=== PATIENT | male | born 1950 | race Caucasian/White ===

== ENCOUNTER 2016-06-07 14:15 | Emergency (ER) | payer OTHER ==
[~2016-06-07] VITALS: Ht 160 cm; Wt 70.0 kg
[2016-06-07 16:45] VITALS: BP 122/68
== END 2016-06-07 17:27 | disposition home or self-care (01) ==
LOC: ER 14:16
DX: F10.129 Alcohol abuse with intoxication, unspecified (principal); Y90.9 Presence of alcohol in blood, level not specified
CPT/HCPCS: 99283

== ENCOUNTER 2019-08-27 16:46 | Inpatient (IN) | payer MEDICAID, OTHER ==
[~2019-08-27] VITALS: Ht 157.5 cm; Wt 45.4 kg
[2019-08-27] MEDS ORDERED: VANCOMYCIN 1 G PREMIX 200 ML IV ONE (18:45)
[2019-08-27] MEDS ORDERED: PIPERACILLIN/TAZ 3.375G PREMIX 50 ML IV ONE (18:45)
[2019-08-27 19:21] LABS: CHLORIDE 92 mEq/L (98-107)
[2019-08-27 19:23] LABS: INR 1.1; PROTHROMBIN TIME 11.2 sec (9.6-11.0)
[2019-08-27 19:25] LABS: ETHANOL BLOOD < 10 mg/dL
[2019-08-27 19:29] LABS: CREATINE KINASE 161 IU/L (39-308)
[2019-08-27 19:33] LABS: BASOPHILS % 0.9 % (0.0-2.0); EOSINOPHILS % 1.2 % (0.0-5.0); HEMATOCRIT. 27.4 % (42.0-52.0); HEMOGLOBIN. 9.9 g/dL (14.0-18.0); LYMPHOCYTES % 7.1 % (20.0-50.0); MEAN CORPUSCULAR HEMOGLOBIN 34.3 pg (28.0-32.0); MEAN CORPUSCULAR VOLUME 95.3 fL (80.0-94.0); MEAN PLATELET VOLUME 8.2 fl (7.4-10.4); MONOCYTES % 11.4 % (2.0-8.0); NEUTROPHILS % 79.4 % (40.0-76.0); PLATELET 122 x1000/uL (130-400); RED BLOOD CELL COUNT 2.87 mill/uL (4.7-6.1); RED CELL DISTRIBUTION WIDTH 15.2 % (11.6-14.6)
[2019-08-27] MEDS ORDERED: SODIUM CHLORIDE 0.9% 1000ML BAG (SEPSIS BOLUS) IV ONE (20:00)
[2019-08-27 22:03] LABS: CREATINE KINASE 153 IU/L (39-308)
[2019-08-27] MEDS ORDERED: ACETAMINOPHEN 325MG TABLET PO PRN (23:00)
[2019-08-27] MEDS ORDERED: LORAZEPAM 2MG/ML CPJ IV PRN (23:00)
[2019-08-27] MEDS: SODIUM CHLORIDE 0.45% 1,000 ML IV SCH (23:20)
[2019-08-28 04:57] LABS: HEMOGLOBIN. 9.3 g/dL (14.0-18.0); MEAN CORPUSCULAR HEMOGLOBIN 34.1 pg (28.0-32.0); MEAN PLATELET VOLUME 7.7 fl (7.4-10.4); PLATELET 90 x1000/uL (130-400); RED BLOOD CELL COUNT 2.74 mill/uL (4.7-6.1); RED CELL DISTRIBUTION WIDTH 15.3 % (11.6-14.6)
[2019-08-28 05:05] LABS: CHLORIDE 93 mEq/L (98-107)
[2019-08-28 06:38] LABS: CLARITY URINE CLEAR (CLEAR); COLOR URINE ORANGE (YELLOW); KETONES URINE 1+ (NEGATIVE); LEUKOCYTE ESTERASE URINE 1+ (NEGATIVE); NITRITE URINE POSITIVE (NEGATIVE); OCCULT BLOOD URINE 2+ (NEGATIVE); PH URINE 5.5 (4.5-8.0); PROTEIN URINE TRACE (NEGATIVE); SPECIFIC GRAVITY URINE 1.023 (1.005-1.030)
[2019-08-28 07:04] LABS: *AMPHETAMINES SCREEN URINE NEGATIVE (NEGATIVE); *BARBITURATES SCREEN URINE NEGATIVE (NEGATIVE); *BENZODIAZEPINES SCREEN URINE NEGATIVE (NEGATIVE); *COCAINE SCREEN URINE NEGATIVE (NEGATIVE); METHADONE URINE SCREEN NEGATIVE (NEGATIVE); OPIATES URINE SCREEN NEGATIVE (NEGATIVE)
[2019-08-28 07:05] LABS: CANNABINOID URINE SCREEN NEGATIVE (NEGATIVE); PHENCYCLIDINE URINE SCREEN NEGATIVE (NEGATIVE)
[2019-08-28 10:30] VITALS: BP 110/68
[2019-08-28 10:53] LABS: PLATELET ESTIMATE DECREASED
[2019-08-28] MEDS: THIAMINE HCL 100MG TABLET PO SCH (11:03)
[2019-08-28 12:00] VITALS: BP 107/66
[2019-08-28] MEDS: AZITHROMYCIN 500 MG in DEXT 5% WATER 250 ML IV SCH (13:17)
[2019-08-28] MEDS: CEFTRIAXONE 1 G PREMIX 50 ML IV SCH (13:17)
[2019-08-28] MEDS: CHLORDIAZEPOXIDE 25MG CAPSULE PO SCH ×2 (13:18→21:29)
[2019-08-28] MEDS: SODIUM CHLORIDE 0.45% 1,000 ML IV SCH (13:18)
[2019-08-28 16:00] VITALS: BP 107/65
[2019-08-28 20:00] VITALS: BP 90/52
[2019-08-29] VITALS (7 sets, daily range): BP systolic 83–106; BP diastolic 50–60
[2019-08-29] MEDS: SODIUM CHLORIDE 0.45% 1,000 ML IV SCH ×2 (01:49→14:33)
[2019-08-29] MEDS: CHLORDIAZEPOXIDE 25MG CAPSULE PO SCH ×3 (05:58→22:12)
[2019-08-29] MEDS: THIAMINE HCL 100MG TABLET PO SCH (08:55)
[2019-08-29] MEDS: CEFTRIAXONE 1 G PREMIX 50 ML IV SCH (11:14)
[2019-08-29] MEDS: AZITHROMYCIN 500 MG in DEXT 5% WATER 250 ML IV SCH (12:02)
[2019-08-29] MEDS: SODIUM CHLORIDE 0.9% 1,000 ML IV SCH (15:30)
[2019-08-29] MEDS ORDERED: SODIUM CHLORIDE 0.9% 500 ML IV NR ×2 (15:30→16:00)
[2019-08-30 00:07] VITALS: BP 94/47
[2019-08-30 04:00] VITALS: BP 107/57
[2019-08-30] MEDS: SODIUM CHLORIDE 0.9% 1,000 ML IV SCH ×2 (04:50→18:00)
[2019-08-30] MEDS: CHLORDIAZEPOXIDE 25MG CAPSULE PO SCH ×3 (05:50→21:16)
[2019-08-30 08:30] VITALS: BP 90/43
[2019-08-30] MEDS: THIAMINE HCL 100MG TABLET PO SCH (10:21)
[2019-08-30] MEDS: MIDODRINE HCL 5MG TABLET PO SCH ×3 (10:27→18:00)
[2019-08-30 12:12] VITALS: BP 89/42
[2019-08-30] MEDS: CEFTRIAXONE 1 G PREMIX 50 ML IV SCH (12:26)
[2019-08-30] MEDS: AZITHROMYCIN 500 MG in DEXT 5% WATER 250 ML IV SCH (12:27)
[2019-08-30 16:00] VITALS: BP 80/46
[2019-08-30 20:00] VITALS: BP 96/52
[2019-08-31] VITALS: BP 96/53
[2019-08-31] MEDS: SODIUM CHLORIDE 0.9% 1,000 ML IV SCH ×2 (03:35→21:55)
[2019-08-31 04:00] VITALS: BP 91/58
[2019-08-31] MEDS: CHLORDIAZEPOXIDE 25MG CAPSULE PO SCH ×3 (06:16→21:36)
[2019-08-31 08:00] VITALS: BP 86/44
[2019-08-31] MEDS: MIDODRINE HCL 5MG TABLET PO SCH ×3 (09:04→17:31)
[2019-08-31] MEDS: THIAMINE HCL 100MG TABLET PO SCH (09:05)
[2019-08-31 12:00] VITALS: BP 94/52
[2019-08-31] MEDS: CEFTRIAXONE 1 G PREMIX 50 ML IV SCH (12:02)
[2019-08-31] MEDS: AZITHROMYCIN 500 MG in DEXT 5% WATER 250 ML IV SCH (12:03)
[2019-08-31 16:00] VITALS: BP 92/56
[2019-08-31 20:00] VITALS: BP 87/45
[2019-08-31 20:07] LABS: CHLORIDE 97 mEq/L (98-107)
[2019-08-31 20:12] LABS: PHOSPHORUS 3.8 mg/dL (2.5-4.9)
[2019-08-31] MEDS ORDERED: POTASSIUM CHLORIDE 20MEQ TABLET SR PO SCH ×2 (22:30→23:30)
[2019-09-01] VITALS: BP 94/55
[2019-09-01] MEDS ORDERED: MAGNESIUM 4 G PREMIX 100 ML IV SCH
[2019-09-01] MEDS ORDERED: POTASSIUM CHLORIDE 20MEQ TABLET SR PO SCH (00:30)
[2019-09-01 04:00] VITALS: BP 83/43
[2019-09-01] MEDS: CHLORDIAZEPOXIDE 25MG CAPSULE PO SCH ×3 (07:02→21:20)
[2019-09-01 07:34] LABS: CHLORIDE 101 mEq/L (98-107)
[2019-09-01 08:00] VITALS: BP 82/62
[2019-09-01] MEDS: THIAMINE HCL 100MG TABLET PO SCH (09:49)
[2019-09-01] MEDS: MIDODRINE HCL 5MG TABLET PO SCH ×3 (09:49→17:26)
[2019-09-01] MEDS: SODIUM CHLORIDE 0.9% 1,000 ML IV SCH (09:50)
[2019-09-01] MEDS: CEFTRIAXONE 1 G PREMIX 50 ML IV SCH (11:45)
[2019-09-01 12:00] VITALS: BP 91/41
[2019-09-01] MEDS: AZITHROMYCIN 500 MG in DEXT 5% WATER 250 ML IV SCH (12:19)
[2019-09-01 16:00] VITALS: BP 83/46
[2019-09-01 20:00] VITALS: BP 100/50
[2019-09-02] VITALS (7 sets, daily range): BP systolic 90–109; BP diastolic 40–60
[2019-09-02] MEDS: SODIUM CHLORIDE 0.9% 1,000 ML IV SCH ×2 (00:08→16:49)
[2019-09-02] MEDS ORDERED: LORAZEPAM 2MG/ML CPJ IV NR (01:00)
[2019-09-02] MEDS: CHLORDIAZEPOXIDE 25MG CAPSULE PO SCH ×2 (05:30→13:42)
[2019-09-02] MEDS: FOLIC ACID 1MG TABLET PO SCH (08:32)
[2019-09-02] MEDS: THIAMINE HCL 100MG TABLET PO SCH (08:32)
[2019-09-02] MEDS: MULTIVITAMINS,THER W-MINERALS TABLET PO SCH (08:32)
[2019-09-02] MEDS: MIDODRINE HCL 5MG TABLET PO SCH ×3 (08:32→16:49)
[2019-09-03] VITALS (7 sets, daily range): BP systolic 91–110; BP diastolic 51–73
[2019-09-03] MEDS: ONDANSETRON HCL 4MG/2ML INJ IV PRN (02:10)
[2019-09-03] MEDS: SODIUM CHLORIDE 0.9% 1,000 ML IV SCH (02:11)
[2019-09-03] MEDS: THIAMINE HCL 100MG TABLET PO SCH (09:06)
[2019-09-03] MEDS: MULTIVITAMINS,THER W-MINERALS TABLET PO SCH (09:06)
[2019-09-03] MEDS: MIDODRINE HCL 5MG TABLET PO SCH ×3 (09:06→17:34)
[2019-09-03] MEDS: FOLIC ACID 1MG TABLET PO SCH (09:06)
[2019-09-04] VITALS: BP 104/57
[2019-09-04 04:00] VITALS: BP 148/61
[2019-09-04 06:37] LABS: BASOPHILS % 0.5 % (0.0-2.0); EOSINOPHILS % 3.7 % (0.0-5.0); HEMATOCRIT. 26.6 % (42.0-52.0); HEMOGLOBIN. 9.3 g/dL (14.0-18.0); LYMPHOCYTES % 15.8 % (20.0-50.0); MEAN CORPUSCULAR HEMOGLOBIN 34.3 pg (28.0-32.0); MEAN CORPUSCULAR VOLUME 97.5 fL (80.0-94.0); MEAN PLATELET VOLUME 7.6 fl (7.4-10.4); MONOCYTES % 10.4 % (2.0-8.0); NEUTROPHILS % 69.6 % (40.0-76.0); PLATELET 193 x1000/uL (130-400); RED BLOOD CELL COUNT 2.72 mill/uL (4.7-6.1)
[2019-09-04 06:47] LABS: CHLORIDE 99 mEq/L (98-107)
[2019-09-04 06:53] LABS: PHOSPHORUS 4.3 mg/dL (2.5-4.9)
[2019-09-04 08:00] VITALS: BP 90/51
[2019-09-04] MEDS: MIDODRINE HCL 5MG TABLET PO SCH ×3 (10:06→19:23)
[2019-09-04] MEDS: THIAMINE HCL 100MG TABLET PO SCH (10:06)
[2019-09-04] MEDS: MULTIVITAMINS,THER W-MINERALS TABLET PO SCH (10:06)
[2019-09-04] MEDS: FOLIC ACID 1MG TABLET PO SCH (10:11)
[2019-09-04 12:00] VITALS: BP 86/45
[2019-09-04] MEDS ORDERED: MAGNESIUM 2 G PREMIX 50 ML IV SCH (13:00)
[2019-09-04] MEDS ORDERED: POTASSIUM CHLORIDE INJ 40 MEQ in DEXT 5% WATER 250 ML IV NR (13:30)
[2019-09-04 14:02] VITALS: BP 91/47
[2019-09-04 20:00] VITALS: BP 99/63
[2019-09-05] VITALS (7 sets, daily range): BP systolic 87–122; BP diastolic 47–70
[2019-09-05] MEDS: MIDODRINE HCL 5MG TABLET PO SCH ×3 (10:19→17:34)
[2019-09-05] MEDS: FOLIC ACID 1MG TABLET PO SCH (10:20)
[2019-09-05] MEDS: MULTIVITAMINS,THER W-MINERALS TABLET PO SCH (10:20)
[2019-09-05] MEDS: THIAMINE HCL 100MG TABLET PO SCH (10:20)
[2019-09-06] VITALS: BP 77/44
[2019-09-06] MEDS: ONDANSETRON HCL 4MG/2ML INJ IV PRN (01:05)
[2019-09-06 04:00] VITALS: BP 88/46
[2019-09-06 07:05] LABS: CHLORIDE 100 mEq/L (98-107)
[2019-09-06 07:31] LABS: BASOPHILS % 0.8 % (0.0-2.0); EOSINOPHILS % 3.6 % (0.0-5.0); HEMATOCRIT. 24.7 % (42.0-52.0); HEMOGLOBIN. 8.5 g/dL (14.0-18.0); LYMPHOCYTES % 16.2 % (20.0-50.0); MEAN CORPUSCULAR HEMOGLOBIN 34.1 pg (28.0-32.0); MEAN CORPUSCULAR VOLUME 99.1 fL (80.0-94.0); MEAN PLATELET VOLUME 7.8 fl (7.4-10.4); MONOCYTES % 9.3 % (2.0-8.0); NEUTROPHILS % 70.1 % (40.0-76.0); PLATELET 226 x1000/uL (130-400); RED CELL DISTRIBUTION WIDTH 15.8 % (11.6-14.6)
[2019-09-06 08:00] VITALS: BP 81/42
[2019-09-06] MEDS: FOLIC ACID 1MG TABLET PO SCH (09:26)
[2019-09-06] MEDS: THIAMINE HCL 100MG TABLET PO SCH (09:26)
[2019-09-06] MEDS: MULTIVITAMINS,THER W-MINERALS TABLET PO SCH (09:26)
[2019-09-06] MEDS: MIDODRINE HCL 5MG TABLET PO SCH ×3 (09:27→16:59)
[2019-09-06 12:00] VITALS: BP 84/43
[2019-09-06] MEDS ORDERED: MAGNESIUM 2 G PREMIX 50 ML IV NR (14:00)
[2019-09-06 16:00] VITALS: BP 126/59
[2019-09-06 20:00] VITALS: BP 107/53
[2019-09-07] VITALS: BP 101/61
[2019-09-07 04:00] VITALS: BP 100/55
[2019-09-07] MEDS: FOLIC ACID 1MG TABLET PO SCH (08:22)
[2019-09-07] MEDS: MULTIVITAMINS,THER W-MINERALS TABLET PO SCH (08:22)
[2019-09-07] MEDS: THIAMINE HCL 100MG TABLET PO SCH (08:22)
[2019-09-07] MEDS: MIDODRINE HCL 5MG TABLET PO SCH ×3 (08:22→17:33)
[2019-09-07 12:00] VITALS: BP 89/48
[2019-09-07] MEDS ORDERED: MAGNESIUM 1 G PREMIX 100 ML IV ONE (12:00)
[2019-09-07 16:00] VITALS: BP 79/58
[2019-09-07 20:00] VITALS: BP 100/41
[2019-09-08] VITALS: BP 105/55
[2019-09-08 04:00] VITALS: BP 101/56
[2019-09-08 08:58] VITALS: BP 75/42
[2019-09-08] MEDS: FOLIC ACID 1MG TABLET PO SCH (09:30)
[2019-09-08] MEDS: THIAMINE HCL 100MG TABLET PO SCH (09:30)
[2019-09-08] MEDS: MULTIVITAMINS,THER W-MINERALS TABLET PO SCH (09:30)
[2019-09-08] MEDS: MIDODRINE HCL 5MG TABLET PO SCH ×3 (09:30→17:17)
[2019-09-08 12:24] VITALS: BP 81/42
[2019-09-08] MEDS: MAGNESIUM OXIDE 400MG TABLET PO SCH (12:38)
[2019-09-08 16:15] VITALS: BP 95/53
[2019-09-08 20:00] VITALS: BP 102/57
[2019-09-09] VITALS: BP 98/50
[2019-09-09 04:00] VITALS: BP 132/60
[2019-09-09 08:00] VITALS: BP 92/55
[2019-09-09] MEDS: MULTIVITAMINS,THER W-MINERALS TABLET PO SCH (08:39)
[2019-09-09] MEDS: FOLIC ACID 1MG TABLET PO SCH (08:39)
[2019-09-09] MEDS: THIAMINE HCL 100MG TABLET PO SCH (08:39)
[2019-09-09] MEDS: MAGNESIUM OXIDE 400MG TABLET PO SCH (08:39)
[2019-09-09] MEDS: MIDODRINE HCL 5MG TABLET PO SCH ×3 (08:40→16:34)
[2019-09-09 12:00] VITALS: BP 94/57
[2019-09-09 16:00] VITALS: BP 96/54
[2019-09-09 20:00] VITALS: BP 87/52
[2019-09-10] VITALS (7 sets, daily range): BP systolic 97–129; BP diastolic 45–69
[2019-09-10] MEDS: LORAZEPAM 2MG/ML CPJ IV PRN (08:31)
[2019-09-10] MEDS: FOLIC ACID 1MG TABLET PO SCH (10:25)
[2019-09-10] MEDS: MAGNESIUM OXIDE 400MG TABLET PO SCH (10:25)
[2019-09-10] MEDS: THIAMINE HCL 100MG TABLET PO SCH (10:25)
[2019-09-10] MEDS: MULTIVITAMINS,THER W-MINERALS TABLET PO SCH (10:25)
[2019-09-10] MEDS: MIDODRINE HCL 5MG TABLET PO SCH ×3 (10:26→18:09)
[2019-09-11] VITALS: BP 143/72
[2019-09-11] MEDS: LORAZEPAM 2MG/ML CPJ IV PRN (00:04)
[2019-09-11 04:00] VITALS: BP 115/61
[2019-09-11 08:00] VITALS: BP 90/55
[2019-09-11] MEDS: MAGNESIUM OXIDE 400MG TABLET PO SCH (09:04)
[2019-09-11] MEDS: MULTIVITAMINS,THER W-MINERALS TABLET PO SCH (09:04)
[2019-09-11] MEDS: MIDODRINE HCL 5MG TABLET PO SCH ×3 (09:04→17:34)
[2019-09-11] MEDS: FOLIC ACID 1MG TABLET PO SCH (09:04)
[2019-09-11] MEDS: THIAMINE HCL 100MG TABLET PO SCH (09:04)
[2019-09-11 12:00] VITALS: BP 104/59
[2019-09-11 16:00] VITALS: BP 99/58
[2019-09-11 20:00] VITALS: BP 119/70
[2019-09-12] VITALS: BP 112/59
[2019-09-12 04:00] VITALS: BP 108/62
[2019-09-12 08:00] VITALS: BP 90/53
[2019-09-12] MEDS: THIAMINE HCL 100MG TABLET PO SCH (09:00)
[2019-09-12] MEDS: MIDODRINE HCL 5MG TABLET PO SCH ×3 (09:00→17:39)
[2019-09-12] MEDS: MAGNESIUM OXIDE 400MG TABLET PO SCH (09:00)
[2019-09-12] MEDS: MULTIVITAMINS,THER W-MINERALS TABLET PO SCH (09:00)
[2019-09-12] MEDS: FOLIC ACID 1MG TABLET PO SCH (09:00)
[2019-09-12 12:00] VITALS: BP 105/60
[2019-09-12 16:00] VITALS: BP 110/70
[2019-09-12 20:00] VITALS: BP 100/60
[2019-09-13] VITALS: BP 98/60
[2019-09-13 04:00] VITALS: BP 114/66
[2019-09-13 08:00] VITALS: BP 92/56
[2019-09-13] MEDS: MIDODRINE HCL 5MG TABLET PO SCH ×3 (09:01→17:13)
[2019-09-13] MEDS: THIAMINE HCL 100MG TABLET PO SCH (09:01)
[2019-09-13] MEDS: MULTIVITAMINS,THER W-MINERALS TABLET PO SCH (09:02)
[2019-09-13] MEDS: FOLIC ACID 1MG TABLET PO SCH (09:02)
[2019-09-13] MEDS: MAGNESIUM OXIDE 400MG TABLET PO SCH (09:02)
[2019-09-13 12:00] VITALS: BP 114/60
[2019-09-13 16:00] VITALS: BP 105/64
[2019-09-13 16:55] LABS: HEMOGLOBIN. 9.2 g/dL (14.0-18.0); MEAN CORPUSCULAR HEMOGLOBIN 34.3 pg (28.0-32.0); MEAN CORPUSCULAR VOLUME 97.2 fL (80.0-94.0); MEAN PLATELET VOLUME 8.3 fl (7.4-10.4); PLATELET 247 x1000/uL (130-400); RED BLOOD CELL COUNT 2.68 mill/uL (4.7-6.1); RED CELL DISTRIBUTION WIDTH 15.6 % (11.6-14.6)
[2019-09-13 17:08] LABS: CHLORIDE 97 mEq/L (98-107)
[2019-09-13 17:23] LABS: PLATELET ESTIMATE NORMAL
[2019-09-13 20:00] VITALS: BP 105/54
[2019-09-13] MEDS: LORAZEPAM 2MG/ML CPJ IV PRN (22:55)
[2019-09-14] VITALS: BP 114/65
[2019-09-14 04:00] VITALS: BP 121/67
[2019-09-14 08:00] VITALS: BP 116/62
[2019-09-14] MEDS: THIAMINE HCL 100MG TABLET PO SCH (08:32)
[2019-09-14] MEDS: MIDODRINE HCL 5MG TABLET PO SCH ×3 (08:32→17:25)
[2019-09-14] MEDS: MULTIVITAMINS,THER W-MINERALS TABLET PO SCH (08:32)
[2019-09-14] MEDS: MAGNESIUM OXIDE 400MG TABLET PO SCH (08:32)
[2019-09-14] MEDS: FOLIC ACID 1MG TABLET PO SCH (08:32)
[2019-09-14] MEDS ORDERED: LACTULOSE 20G/30ML UDC PO PRN (11:45)
[2019-09-14 12:00] VITALS: BP 110/61
[2019-09-14] MEDS: LORAZEPAM 2MG/ML CPJ IV PRN (12:42)
[2019-09-14] MEDS: DOCUSATE SODIUM 100MG CAPSULE PO SCH ×2 (12:42→17:25)
[2019-09-14 13:47] LABS: BG BASE EXCESS 3.7 mmol/L (-2.0-2.0); BG CARBOXYHEMOGLOBIN 0.3 % (0.5-1.5); BG DEOXYHEMOGLOBIN 2.9 % (0.0-5.0); BG FRACTION INSPIRED OXYGEN 21; BG HCO3 ACT 27.6 mmol/L (22.0-26.0); BG METHEMOGLOBIN 0.4 % (0.0-1.5); BG OXYGEN SATURATION 97.1 % (92.0-98.5); BG OXYHEMOGLOBIN 96.4 % (94.0-97.0); BG PCO2 38.8 mmHg (35.0-45.0); BG SAMPLE SITE LEFT BRACHIAL; BG TOTAL HEMOGLOBIN 9.5 g/dL (12.0-18.0); BG VENT MODE ROOM AIR
[2019-09-14 16:00] VITALS: BP 117/62
[2019-09-14 20:00] VITALS: BP 116/67
[2019-09-15] VITALS: BP 107/63
[2019-09-15 04:00] VITALS: BP_SYST 103; BP_SYST 127; BP_DIAS 58; BP_DIAS 71
[2019-09-15 06:50] LABS: CHLORIDE 100 mEq/L (98-107)
[2019-09-15 06:51] LABS: HEMATOCRIT. 27.4 % (42.0-52.0); HEMOGLOBIN. 9.4 g/dL (14.0-18.0); MEAN CORPUSCULAR HEMOGLOBIN 32.8 pg (28.0-32.0); MEAN CORPUSCULAR VOLUME 96.2 fL (80.0-94.0); MEAN PLATELET VOLUME 8.1 fl (7.4-10.4); PLATELET 324 x1000/uL (130-400); RED BLOOD CELL COUNT 2.85 mill/uL (4.7-6.1)
[2019-09-15 08:00] VITALS: BP 98/59
[2019-09-15] MEDS: THIAMINE HCL 100MG TABLET PO SCH (08:49)
[2019-09-15] MEDS: FOLIC ACID 1MG TABLET PO SCH (08:50)
[2019-09-15] MEDS: MULTIVITAMINS,THER W-MINERALS TABLET PO SCH (08:50)
[2019-09-15] MEDS: MIDODRINE HCL 5MG TABLET PO SCH ×3 (08:50→17:20)
[2019-09-15] MEDS: DOCUSATE SODIUM 100MG CAPSULE PO SCH ×2 (08:50→17:20)
[2019-09-15] MEDS: MAGNESIUM OXIDE 400MG TABLET PO SCH (08:50)
[2019-09-15 10:19] LABS: ATYPICAL LYMPHOCYTES 1
[2019-09-15 10:20] LABS: PLATELET ESTIMATE NORMAL
[2019-09-15 12:00] VITALS: BP 112/64
[2019-09-15 16:00] VITALS: BP 103/66
[2019-09-15 20:00] VITALS: BP 141/83
[2019-09-16] VITALS: BP 117/62
[2019-09-16 04:00] VITALS: BP 109/56
[2019-09-16 08:00] VITALS: BP 106/64
[2019-09-16] MEDS: MIDODRINE HCL 5MG TABLET PO SCH ×3 (08:07→17:15)
[2019-09-16] MEDS: DOCUSATE SODIUM 100MG CAPSULE PO SCH ×2 (08:07→17:23)
[2019-09-16] MEDS: MULTIVITAMINS,THER W-MINERALS TABLET PO SCH (08:07)
[2019-09-16] MEDS: MAGNESIUM OXIDE 400MG TABLET PO SCH (08:07)
[2019-09-16] MEDS: THIAMINE HCL 100MG TABLET PO SCH (08:07)
[2019-09-16] MEDS: FOLIC ACID 1MG TABLET PO SCH (08:08)
[2019-09-16 12:00] VITALS: BP 108/68
[2019-09-16 16:00] VITALS: BP 112/65
[2019-09-16 20:00] VITALS: BP 128/74
[2019-09-16] MEDS: QUETIAPINE FUMARATE 25MG TABLET PO SCH (20:09)
[2019-09-16] MEDS: LORAZEPAM 2MG/ML CPJ IM PRN (22:00)
[2019-09-17] VITALS: BP 120/68
[2019-09-17 04:00] VITALS: BP 115/59
[2019-09-17] MEDS: LORAZEPAM 2MG/ML CPJ IM PRN (08:48)
[2019-09-17] MEDS: DOCUSATE SODIUM 100MG CAPSULE PO SCH ×2 (08:48→17:00)
[2019-09-17] MEDS: QUETIAPINE FUMARATE 25MG TABLET PO SCH ×2 (08:49→20:21)
[2019-09-17] MEDS: THIAMINE HCL 100MG TABLET PO SCH (08:49)
[2019-09-17] MEDS: MIDODRINE HCL 5MG TABLET PO SCH ×3 (08:49→18:46)
[2019-09-17] MEDS: MAGNESIUM OXIDE 400MG TABLET PO SCH (08:49)
[2019-09-17] MEDS: FOLIC ACID 1MG TABLET PO SCH (08:49)
[2019-09-17] MEDS: MULTIVITAMINS,THER W-MINERALS TABLET PO SCH (08:49)
[2019-09-17 09:14] VITALS: BP 131/77
[2019-09-17] MEDS: LORAZEPAM 2MG/ML CPJ IV PRN ×2 (11:06→20:22)
[2019-09-17 12:00] VITALS: BP 114/67
[2019-09-17] MEDS: HALOPERIDOL LACTATE 5MG/ML VIAL IM PRN (13:28)
[2019-09-17 16:00] VITALS: BP 126/68
[2019-09-17 20:00] VITALS: BP 143/77
[2019-09-18] VITALS: BP 135/72
[2019-09-18 04:00] VITALS: BP 127/70
[2019-09-18] MEDS: LORAZEPAM 2MG/ML CPJ IV PRN (05:16)
[2019-09-18 08:00] VITALS: BP 119/77
[2019-09-18] MEDS: DOCUSATE SODIUM 100MG CAPSULE PO SCH ×2 (08:50→17:46)
[2019-09-18] MEDS: QUETIAPINE FUMARATE 25MG TABLET PO SCH ×2 (08:50→21:43)
[2019-09-18] MEDS: FOLIC ACID 1MG TABLET PO SCH (08:50)
[2019-09-18] MEDS: MIDODRINE HCL 5MG TABLET PO SCH ×3 (08:50→17:47)
[2019-09-18] MEDS: MULTIVITAMINS,THER W-MINERALS TABLET PO SCH (08:50)
[2019-09-18] MEDS: THIAMINE HCL 100MG TABLET PO SCH (08:50)
[2019-09-18] MEDS: MAGNESIUM OXIDE 400MG TABLET PO SCH (08:50)
[2019-09-18 12:00] VITALS: BP 127/74
[2019-09-18 20:00] VITALS: BP 97/61
[2019-09-19] VITALS: BP 117/60
[2019-09-19 04:00] VITALS: BP 102/61
[2019-09-19 08:00] VITALS: BP 108/62
[2019-09-19] MEDS: MULTIVITAMINS,THER W-MINERALS TABLET PO SCH (09:45)
[2019-09-19] MEDS: QUETIAPINE FUMARATE 25MG TABLET PO SCH ×2 (09:45→20:20)
[2019-09-19] MEDS: MIDODRINE HCL 5MG TABLET PO SCH ×3 (09:45→16:58)
[2019-09-19] MEDS: DOCUSATE SODIUM 100MG CAPSULE PO SCH ×2 (09:45→16:57)
[2019-09-19] MEDS: FOLIC ACID 1MG TABLET PO SCH (09:45)
[2019-09-19] MEDS: MAGNESIUM OXIDE 400MG TABLET PO SCH (09:45)
[2019-09-19] MEDS: THIAMINE HCL 100MG TABLET PO SCH (09:45)
[2019-09-19 12:00] VITALS: BP 102/60
[2019-09-19 16:00] VITALS: BP 100/53
[2019-09-19 20:00] VITALS: BP 123/66
[2019-09-19] MEDS: RISPERIDONE 1MG TABLET PO SCH (20:20)
[2019-09-19] MEDS: LORAZEPAM 2MG/ML CPJ IV PRN (22:40)
[2019-09-20] VITALS: BP 113/68
[2019-09-20] MEDS: HALOPERIDOL LACTATE 5MG/ML VIAL IM PRN (01:59)
[2019-09-20 04:00] VITALS: BP 116/73
[2019-09-20] MEDS: MIDODRINE HCL 5MG TABLET PO SCH ×3 (09:12→17:49)
[2019-09-20] MEDS: DOCUSATE SODIUM 100MG CAPSULE PO SCH ×2 (09:13→17:49)
[2019-09-20] MEDS: QUETIAPINE FUMARATE 25MG TABLET PO SCH ×2 (09:13→21:16)
[2019-09-20] MEDS: MAGNESIUM OXIDE 400MG TABLET PO SCH (09:13)
[2019-09-20] MEDS: FOLIC ACID 1MG TABLET PO SCH (09:13)
[2019-09-20] MEDS: THIAMINE HCL 100MG TABLET PO SCH (09:13)
[2019-09-20] MEDS: MULTIVITAMINS,THER W-MINERALS TABLET PO SCH (09:13)
[2019-09-20] MEDS: RISPERIDONE 1MG TABLET PO SCH ×2 (09:13→21:16)
[2019-09-20 09:32] VITALS: BP 116/66
[2019-09-20 12:20] VITALS: BP 114/62
[2019-09-20] MEDS: LORAZEPAM 2MG/ML CPJ IV PRN (12:23)
[2019-09-20 16:11] VITALS: BP 102/54
[2019-09-20 20:00] VITALS: BP 107/66
[2019-09-21] VITALS: BP 117/75
[2019-09-21] MEDS: LORAZEPAM 2MG/ML CPJ IV PRN ×3 (00:56→23:45)
[2019-09-21 04:00] VITALS: BP 114/67
[2019-09-21 08:00] VITALS: BP 114/67
[2019-09-21] MEDS: MIDODRINE HCL 5MG TABLET PO SCH ×3 (08:33→17:36)
[2019-09-21] MEDS: RISPERIDONE 1MG TABLET PO SCH ×2 (08:33→22:44)
[2019-09-21] MEDS: QUETIAPINE FUMARATE 25MG TABLET PO SCH ×2 (08:33→22:44)
[2019-09-21] MEDS: MULTIVITAMINS,THER W-MINERALS TABLET PO SCH (08:33)
[2019-09-21] MEDS: DOCUSATE SODIUM 100MG CAPSULE PO SCH ×2 (08:33→17:36)
[2019-09-21] MEDS: MAGNESIUM OXIDE 400MG TABLET PO SCH (08:33)
[2019-09-21] MEDS: FOLIC ACID 1MG TABLET PO SCH (08:33)
[2019-09-21] MEDS: THIAMINE HCL 100MG TABLET PO SCH (08:33)
[2019-09-21] MEDS: HALOPERIDOL LACTATE 5MG/ML VIAL IM PRN (09:42)
[2019-09-21 12:00] VITALS: BP 111/72
[2019-09-21 16:00] VITALS: BP 103/64
[2019-09-21 20:00] VITALS: BP 103/60
[2019-09-22] VITALS (7 sets, daily range): BP systolic 100–134; BP diastolic 62–79
[2019-09-22] MEDS: MIDODRINE HCL 5MG TABLET PO SCH ×3 (08:30→16:32)
[2019-09-22] MEDS: MULTIVITAMINS,THER W-MINERALS TABLET PO SCH (08:30)
[2019-09-22] MEDS: DOCUSATE SODIUM 100MG CAPSULE PO SCH ×2 (08:30→16:32)
[2019-09-22] MEDS: FOLIC ACID 1MG TABLET PO SCH (08:30)
[2019-09-22] MEDS: MAGNESIUM OXIDE 400MG TABLET PO SCH (08:30)
[2019-09-22] MEDS: QUETIAPINE FUMARATE 25MG TABLET PO SCH ×2 (08:30→21:08)
[2019-09-22] MEDS: RISPERIDONE 1MG TABLET PO SCH ×2 (08:30→21:08)
[2019-09-22] MEDS: THIAMINE HCL 100MG TABLET PO SCH (08:30)
[2019-09-22] MEDS: HALOPERIDOL LACTATE 5MG/ML VIAL IM PRN (14:13)
[2019-09-23] VITALS: BP 118/70
[2019-09-23 04:00] VITALS: BP 121/59
[2019-09-23 08:00] VITALS: BP 119/69
[2019-09-23] MEDS: MIDODRINE HCL 5MG TABLET PO SCH ×3 (08:34→17:16)
[2019-09-23] MEDS: MULTIVITAMINS,THER W-MINERALS TABLET PO SCH (08:34)
[2019-09-23] MEDS: DOCUSATE SODIUM 100MG CAPSULE PO SCH ×2 (08:34→17:16)
[2019-09-23] MEDS: MAGNESIUM OXIDE 400MG TABLET PO SCH (08:34)
[2019-09-23] MEDS: FOLIC ACID 1MG TABLET PO SCH (08:35)
[2019-09-23] MEDS: RISPERIDONE 1MG TABLET PO SCH ×2 (08:35→20:54)
[2019-09-23] MEDS: THIAMINE HCL 100MG TABLET PO SCH (08:35)
[2019-09-23] MEDS: QUETIAPINE FUMARATE 25MG TABLET PO SCH ×2 (08:35→20:54)
[2019-09-23 12:00] VITALS: BP 118/71
[2019-09-23] MEDS: HALOPERIDOL LACTATE 5MG/ML VIAL IM PRN (14:42)
[2019-09-23 18:00] VITALS: BP 119/75
[2019-09-23 20:00] VITALS: BP 101/62
[2019-09-24] VITALS: BP 96/60
[2019-09-24 04:00] VITALS: BP 112/64
[2019-09-24 08:00] VITALS: BP 112/61
[2019-09-24] MEDS: MULTIVITAMINS,THER W-MINERALS TABLET PO SCH (09:05)
[2019-09-24] MEDS: RISPERIDONE 1MG TABLET PO SCH ×2 (09:05→21:08)
[2019-09-24] MEDS: THIAMINE HCL 100MG TABLET PO SCH (09:05)
[2019-09-24] MEDS: MAGNESIUM OXIDE 400MG TABLET PO SCH (09:05)
[2019-09-24] MEDS: QUETIAPINE FUMARATE 25MG TABLET PO SCH ×2 (09:05→21:08)
[2019-09-24] MEDS: FOLIC ACID 1MG TABLET PO SCH (09:05)
[2019-09-24] MEDS: MIDODRINE HCL 5MG TABLET PO SCH ×3 (09:05→17:32)
[2019-09-24] MEDS: DOCUSATE SODIUM 100MG CAPSULE PO SCH ×2 (09:05→17:32)
[2019-09-24 12:00] VITALS: BP 117/64
[2019-09-24 16:00] VITALS: BP 116/71
[2019-09-24 20:00] VITALS: BP 105/56
[2019-09-25] VITALS (7 sets, daily range): BP systolic 104–145; BP diastolic 59–81
[2019-09-25] MEDS: DOCUSATE SODIUM 100MG CAPSULE PO SCH ×2 (08:55→17:57)
[2019-09-25] MEDS: RISPERIDONE 1MG TABLET PO SCH ×2 (08:55→21:15)
[2019-09-25] MEDS: MULTIVITAMINS,THER W-MINERALS TABLET PO SCH (08:55)
[2019-09-25] MEDS: QUETIAPINE FUMARATE 25MG TABLET PO SCH ×2 (08:56→21:15)
[2019-09-25] MEDS: MAGNESIUM OXIDE 400MG TABLET PO SCH (08:56)
[2019-09-25] MEDS: THIAMINE HCL 100MG TABLET PO SCH (08:56)
[2019-09-25] MEDS: FOLIC ACID 1MG TABLET PO SCH (08:57)
[2019-09-25] MEDS: MIDODRINE HCL 5MG TABLET PO SCH ×3 (08:58→17:57)
[2019-09-26] VITALS: BP 127/73
[2019-09-26] MEDS: HALOPERIDOL LACTATE 5MG/ML VIAL IM PRN ×3 (00:31→21:46)
[2019-09-26 04:00] VITALS: BP 148/82
[2019-09-26 08:00] VITALS: BP 147/90
[2019-09-26] MEDS: MAGNESIUM OXIDE 400MG TABLET PO SCH (10:03)
[2019-09-26] MEDS: RISPERIDONE 1MG TABLET PO SCH ×2 (10:03→21:46)
[2019-09-26] MEDS: MIDODRINE HCL 5MG TABLET PO SCH ×2 (10:04→21:47)
[2019-09-26] MEDS: QUETIAPINE FUMARATE 25MG TABLET PO SCH ×2 (10:04→21:46)
[2019-09-26] MEDS: MULTIVITAMINS,THER W-MINERALS TABLET PO SCH (10:04)
[2019-09-26] MEDS: FOLIC ACID 1MG TABLET PO SCH (10:04)
[2019-09-26] MEDS: DOCUSATE SODIUM 100MG CAPSULE PO SCH ×2 (10:04→21:46)
[2019-09-26 12:00] VITALS: BP 134/78
[2019-09-26 16:00] VITALS: BP 115/72
[2019-09-26 20:00] VITALS: BP 108/61
[2019-09-27] VITALS: BP 117/67
[2019-09-27 04:00] VITALS: BP 123/68
[2019-09-27 08:00] VITALS: BP 104/70
[2019-09-27] MEDS: MAGNESIUM OXIDE 400MG TABLET PO SCH (08:42)
[2019-09-27] MEDS: MULTIVITAMINS,THER W-MINERALS TABLET PO SCH (08:42)
[2019-09-27] MEDS: FOLIC ACID 1MG TABLET PO SCH (08:42)
[2019-09-27] MEDS: RISPERIDONE 1MG TABLET PO SCH ×2 (08:42→21:50)
[2019-09-27] MEDS: MIDODRINE HCL 5MG TABLET PO SCH (08:43)
[2019-09-27] MEDS: DOCUSATE SODIUM 100MG CAPSULE PO SCH ×2 (08:43→16:48)
[2019-09-27] MEDS: QUETIAPINE FUMARATE 25MG TABLET PO SCH ×2 (08:43→21:50)
[2019-09-27 12:00] VITALS: BP 95/56
[2019-09-27 16:00] VITALS: BP 106/70
[2019-09-27 20:00] VITALS: BP 110/63
[2019-09-28] VITALS: BP 98/61
[2019-09-28 04:00] VITALS: BP 90/64
[2019-09-28 08:00] VITALS: BP 104/63
[2019-09-28] MEDS: DOCUSATE SODIUM 100MG CAPSULE PO SCH ×2 (08:57→17:22)
[2019-09-28] MEDS: QUETIAPINE FUMARATE 25MG TABLET PO SCH ×2 (08:57→21:01)
[2019-09-28] MEDS: FOLIC ACID 1MG TABLET PO SCH (08:57)
[2019-09-28] MEDS: MAGNESIUM OXIDE 400MG TABLET PO SCH (08:57)
[2019-09-28] MEDS: MULTIVITAMINS,THER W-MINERALS TABLET PO SCH (08:57)
[2019-09-28] MEDS: RISPERIDONE 1MG TABLET PO SCH ×2 (08:57→21:01)
[2019-09-28] MEDS: MIDODRINE HCL 5MG TABLET PO SCH ×2 (11:49→17:23)
[2019-09-28 20:00] VITALS: BP 96/58
[2019-09-28 22:46] VITALS: BP 96/58
[2019-09-29] VITALS: BP 94/52
[2019-09-29 04:00] VITALS: BP 106/60
[2019-09-29 08:00] VITALS: BP 97/58
[2019-09-29] MEDS: MAGNESIUM OXIDE 400MG TABLET PO SCH (08:33)
[2019-09-29] MEDS: MULTIVITAMINS,THER W-MINERALS TABLET PO SCH (08:33)
[2019-09-29] MEDS: FOLIC ACID 1MG TABLET PO SCH (08:33)
[2019-09-29] MEDS: RISPERIDONE 1MG TABLET PO SCH ×2 (08:33→20:51)
[2019-09-29] MEDS: QUETIAPINE FUMARATE 25MG TABLET PO SCH ×2 (08:34→20:51)
[2019-09-29] MEDS: MIDODRINE HCL 5MG TABLET PO SCH ×3 (08:34→16:15)
[2019-09-29] MEDS: DOCUSATE SODIUM 100MG CAPSULE PO SCH ×2 (08:34→16:15)
[2019-09-29 12:00] VITALS: BP 92/55
[2019-09-29 16:00] VITALS: BP 101/61
[2019-09-29 20:00] VITALS: BP 101/58
[2019-09-30] VITALS: BP 94/60
[2019-09-30 08:00] VITALS: BP 103/65
[2019-09-30] MEDS: QUETIAPINE FUMARATE 25MG TABLET PO SCH ×2 (09:20→20:12)
[2019-09-30] MEDS: DOCUSATE SODIUM 100MG CAPSULE PO SCH ×2 (09:20→17:16)
[2019-09-30] MEDS: MIDODRINE HCL 5MG TABLET PO SCH ×3 (09:20→17:17)
[2019-09-30] MEDS: MULTIVITAMINS,THER W-MINERALS TABLET PO SCH (09:20)
[2019-09-30] MEDS: RISPERIDONE 1MG TABLET PO SCH ×2 (09:20→20:12)
[2019-09-30] MEDS: MAGNESIUM OXIDE 400MG TABLET PO SCH (09:20)
[2019-09-30] MEDS: FOLIC ACID 1MG TABLET PO SCH (09:20)
[2019-09-30 12:00] VITALS: BP 100/60
[2019-09-30 16:00] VITALS: BP 92/55
[2019-09-30 20:00] VITALS: BP 93/53
[2019-10-01] VITALS: BP 91/52
[2019-10-01 04:00] VITALS: BP 96/57
[2019-10-01 08:00] VITALS: BP 102/56
[2019-10-01] MEDS: DOCUSATE SODIUM 100MG CAPSULE PO SCH ×2 (08:56→18:10)
[2019-10-01] MEDS: QUETIAPINE FUMARATE 25MG TABLET PO SCH ×2 (08:56→20:49)
[2019-10-01] MEDS: MAGNESIUM OXIDE 400MG TABLET PO SCH (08:56)
[2019-10-01] MEDS: RISPERIDONE 1MG TABLET PO SCH ×2 (08:56→20:49)
[2019-10-01] MEDS: MIDODRINE HCL 5MG TABLET PO SCH ×3 (08:57→18:10)
[2019-10-01 12:00] VITALS: BP 108/66
[2019-10-01 16:00] VITALS: BP 102/56
[2019-10-01 20:00] VITALS: BP 93/59
[2019-10-02] VITALS: BP 112/58
[2019-10-02 04:00] VITALS: BP 97/51
[2019-10-02 08:00] VITALS: BP 93/54
[2019-10-02] MEDS: RISPERIDONE 1MG TABLET PO SCH ×2 (08:29→21:32)
[2019-10-02] MEDS: MIDODRINE HCL 5MG TABLET PO SCH ×3 (08:29→17:28)
[2019-10-02] MEDS: QUETIAPINE FUMARATE 25MG TABLET PO SCH ×2 (08:29→21:32)
[2019-10-02] MEDS: DOCUSATE SODIUM 100MG CAPSULE PO SCH ×2 (08:29→17:28)
[2019-10-02] MEDS: MAGNESIUM OXIDE 400MG TABLET PO SCH (08:29)
[2019-10-02 12:00] VITALS: BP 91/53
[2019-10-02 16:00] VITALS: BP 95/56
[2019-10-02 20:00] VITALS: BP 92/49
[2019-10-03] VITALS: BP_SYST 110; BP_SYST 91; BP_DIAS 51; BP_DIAS 55
[2019-10-03 04:00] VITALS: BP 91/55
[2019-10-03 08:00] VITALS: BP 87/54
[2019-10-03] MEDS: QUETIAPINE FUMARATE 25MG TABLET PO SCH ×2 (08:37→21:56)
[2019-10-03] MEDS: RISPERIDONE 1MG TABLET PO SCH ×2 (08:37→21:56)
[2019-10-03] MEDS: DOCUSATE SODIUM 100MG CAPSULE PO SCH ×2 (08:37→17:07)
[2019-10-03] MEDS: MAGNESIUM OXIDE 400MG TABLET PO SCH (08:37)
[2019-10-03] MEDS: MIDODRINE HCL 5MG TABLET PO SCH ×3 (08:38→17:07)
[2019-10-03 12:00] VITALS: BP 85/52
[2019-10-03 16:00] VITALS: BP 94/60
[2019-10-03 20:00] VITALS: BP 89/44
[2019-10-04] VITALS (7 sets, daily range): BP systolic 84–92; BP diastolic 47–54
[2019-10-04] MEDS: MIDODRINE HCL 5MG TABLET PO SCH ×3 (08:42→17:10)
[2019-10-04] MEDS: QUETIAPINE FUMARATE 25MG TABLET PO SCH ×2 (08:42→20:50)
[2019-10-04] MEDS: DOCUSATE SODIUM 100MG CAPSULE PO SCH ×2 (08:42→17:10)
[2019-10-04] MEDS: RISPERIDONE 1MG TABLET PO SCH ×2 (08:42→20:50)
[2019-10-04] MEDS: MAGNESIUM OXIDE 400MG TABLET PO SCH (08:42)
[2019-10-05] VITALS (7 sets, daily range): BP systolic 88–100; BP diastolic 49–86
[2019-10-05] MEDS: QUETIAPINE FUMARATE 25MG TABLET PO SCH ×2 (08:31→20:48)
[2019-10-05] MEDS: RISPERIDONE 1MG TABLET PO SCH ×2 (08:32→20:47)
[2019-10-05] MEDS: DOCUSATE SODIUM 100MG CAPSULE PO SCH ×2 (08:32→16:52)
[2019-10-05] MEDS: MAGNESIUM OXIDE 400MG TABLET PO SCH (08:32)
[2019-10-05] MEDS: MIDODRINE HCL 5MG TABLET PO SCH ×3 (08:32→16:52)
[2019-10-06] VITALS (7 sets, daily range): BP systolic 85–94; BP diastolic 45–62
[2019-10-06] MEDS: HALOPERIDOL LACTATE 5MG/ML VIAL IM PRN (03:30)
[2019-10-06] MEDS: MAGNESIUM OXIDE 400MG TABLET PO SCH (08:24)
[2019-10-06] MEDS: DOCUSATE SODIUM 100MG CAPSULE PO SCH ×2 (08:24→16:53)
[2019-10-06] MEDS: MIDODRINE HCL 5MG TABLET PO SCH ×3 (08:25→16:54)
[2019-10-06] MEDS: QUETIAPINE FUMARATE 25MG TABLET PO SCH ×2 (08:25→20:30)
[2019-10-06] MEDS: RISPERIDONE 1MG TABLET PO SCH ×2 (09:02→20:30)
[2019-10-07] VITALS: BP 92/54
[2019-10-07 04:00] VITALS: BP 92/50
[2019-10-07] MEDS: HALOPERIDOL LACTATE 5MG/ML VIAL IM PRN (06:55)
[2019-10-07 08:00] VITALS: BP 92/52
[2019-10-07] MEDS: RISPERIDONE 1MG TABLET PO SCH ×2 (09:35→20:48)
[2019-10-07] MEDS: QUETIAPINE FUMARATE 25MG TABLET PO SCH ×2 (09:35→20:48)
[2019-10-07] MEDS: DOCUSATE SODIUM 100MG CAPSULE PO SCH ×2 (09:35→17:44)
[2019-10-07] MEDS: MIDODRINE HCL 5MG TABLET PO SCH ×3 (09:36→17:45)
[2019-10-07 12:00] VITALS: BP 90/53
[2019-10-07 16:00] VITALS: BP 116/64
[2019-10-07 20:00] VITALS: BP 107/65
[2019-10-08] VITALS: BP 90/57
[2019-10-08] MEDS: HALOPERIDOL LACTATE 5MG/ML VIAL IM PRN (01:25)
[2019-10-08 04:00] VITALS: BP 101/59
[2019-10-08 08:00] VITALS: BP 88/48
[2019-10-08] MEDS: DOCUSATE SODIUM 100MG CAPSULE PO SCH ×2 (08:39→17:26)
[2019-10-08] MEDS: RISPERIDONE 1MG TABLET PO SCH ×2 (08:40→20:02)
[2019-10-08] MEDS: QUETIAPINE FUMARATE 25MG TABLET PO SCH ×2 (08:40→20:02)
[2019-10-08] MEDS: MIDODRINE HCL 5MG TABLET PO SCH ×3 (08:40→17:26)
[2019-10-08 12:00] VITALS: BP 83/48
[2019-10-08 16:00] VITALS: BP 87/51
[2019-10-08 20:00] VITALS: BP 100/54
[2019-10-09] VITALS: BP 96/59
[2019-10-09 04:00] VITALS: BP 91/55
[2019-10-09 08:00] VITALS: BP 91/56
[2019-10-09] MEDS: QUETIAPINE FUMARATE 25MG TABLET PO SCH ×2 (08:29→21:49)
[2019-10-09] MEDS: DOCUSATE SODIUM 100MG CAPSULE PO SCH ×2 (08:29→17:18)
[2019-10-09] MEDS: RISPERIDONE 1MG TABLET PO SCH ×2 (08:29→21:49)
[2019-10-09] MEDS: MIDODRINE HCL 5MG TABLET PO SCH ×3 (08:29→17:18)
[2019-10-09 12:00] VITALS: BP 83/43
[2019-10-09] MEDS ORDERED: SODIUM CHLORIDE 0.9% 1,000 ML IV NR (15:30)
[2019-10-09 16:00] VITALS: BP 75/41
[2019-10-09 20:00] VITALS: BP 107/63
[2019-10-10] VITALS: BP 95/50
[2019-10-10 04:00] VITALS: BP 108/61
[2019-10-10 08:00] VITALS: BP 125/71
[2019-10-10] MEDS: DOCUSATE SODIUM 100MG CAPSULE PO SCH ×2 (09:04→17:21)
[2019-10-10] MEDS: MIDODRINE HCL 5MG TABLET PO SCH ×3 (09:04→17:21)
[2019-10-10] MEDS: QUETIAPINE FUMARATE 25MG TABLET PO SCH ×2 (09:04→20:51)
[2019-10-10] MEDS: RISPERIDONE 1MG TABLET PO SCH ×2 (09:04→20:51)
[2019-10-10 12:00] VITALS: BP 97/53
[2019-10-10 16:00] VITALS: BP 109/59
[2019-10-10 20:00] VITALS: BP 90/54
[2019-10-11] VITALS: BP 91/57
[2019-10-11 04:00] VITALS: BP 98/52
[2019-10-11 08:00] VITALS: BP 98/60
[2019-10-11] MEDS: QUETIAPINE FUMARATE 25MG TABLET PO SCH ×2 (09:32→20:03)
[2019-10-11] MEDS: DOCUSATE SODIUM 100MG CAPSULE PO SCH ×2 (09:32→17:25)
[2019-10-11] MEDS: RISPERIDONE 1MG TABLET PO SCH ×2 (09:33→20:03)
[2019-10-11] MEDS: MIDODRINE HCL 5MG TABLET PO SCH ×3 (09:33→17:25)
[2019-10-11 12:00] VITALS: BP 96/54
[2019-10-11 16:00] VITALS: BP 105/56
[2019-10-11 20:00] VITALS: BP 89/53
[2019-10-12] VITALS: BP 72/52
[2019-10-12 04:00] VITALS: BP 109/58
[2019-10-12 08:00] VITALS: BP 87/52
[2019-10-12] MEDS: QUETIAPINE FUMARATE 25MG TABLET PO SCH ×2 (09:32→20:09)
[2019-10-12] MEDS: DOCUSATE SODIUM 100MG CAPSULE PO SCH (09:32)
[2019-10-12] MEDS: RISPERIDONE 1MG TABLET PO SCH ×2 (09:32→20:09)
[2019-10-12] MEDS: MIDODRINE HCL 5MG TABLET PO SCH ×3 (09:37→18:45)
[2019-10-12 12:00] VITALS: BP 94/56
[2019-10-12 16:00] VITALS: BP 89/54
[2019-10-12 20:00] VITALS: BP 88/51
[2019-10-13] VITALS: BP 114/62
[2019-10-13 04:00] VITALS: BP 98/71
[2019-10-13 08:00] VITALS: BP 88/52
[2019-10-13] MEDS: MIDODRINE HCL 5MG TABLET PO SCH ×3 (09:12→17:50)
[2019-10-13] MEDS: RISPERIDONE 1MG TABLET PO SCH ×2 (09:12→21:10)
[2019-10-13] MEDS: QUETIAPINE FUMARATE 25MG TABLET PO SCH ×2 (09:12→21:10)
[2019-10-13 12:00] VITALS: BP 87/49
[2019-10-13 16:00] VITALS: BP 89/54
[2019-10-13 20:00] VITALS: BP 89/52
[2019-10-14] VITALS: BP_SYST 103; BP_SYST 88; BP_DIAS 54; BP_DIAS 56
[2019-10-14 04:00] VITALS: BP 89/54
[2019-10-14 08:00] VITALS: BP 85/50
[2019-10-14] MEDS: RISPERIDONE 1MG TABLET PO SCH ×2 (08:40→21:55)
[2019-10-14] MEDS: MIDODRINE HCL 5MG TABLET PO SCH ×3 (08:40→17:41)
[2019-10-14] MEDS: QUETIAPINE FUMARATE 25MG TABLET PO SCH ×2 (08:40→21:55)
[2019-10-14 12:00] VITALS: BP 85/48
[2019-10-14 16:00] VITALS: BP 112/68
[2019-10-14 20:00] VITALS: BP 92/41
[2019-10-15 04:00] VITALS: BP 97/56
[2019-10-15 08:00] VITALS: BP 104/56
[2019-10-15] MEDS: MIDODRINE HCL 5MG TABLET PO SCH ×3 (09:07→17:00)
[2019-10-15] MEDS: RISPERIDONE 1MG TABLET PO SCH ×2 (09:07→21:05)
[2019-10-15 12:00] VITALS: BP 98/49
[2019-10-15 16:00] VITALS: BP 105/59
[2019-10-15 20:00] VITALS: BP 109/66
[2019-10-16] VITALS: BP 90/52
[2019-10-16 04:00] VITALS: BP 91/54
[2019-10-16 08:00] VITALS: BP 107/55
[2019-10-16] MEDS: RISPERIDONE 1MG TABLET PO SCH ×2 (08:54→21:42)
[2019-10-16] MEDS: MIDODRINE HCL 5MG TABLET PO SCH ×3 (08:55→17:26)
[2019-10-16 12:00] VITALS: BP 95/49
[2019-10-16 20:00] VITALS: BP 108/49
[2019-10-17] VITALS: BP 120/63
[2019-10-17 04:00] VITALS: BP 107/56
[2019-10-17 08:00] VITALS: BP 88/52
[2019-10-17] MEDS: RISPERIDONE 1MG TABLET PO SCH ×2 (09:07→20:55)
[2019-10-17] MEDS: MIDODRINE HCL 5MG TABLET PO SCH ×3 (09:07→17:07)
[2019-10-17 12:00] VITALS: BP 92/49
[2019-10-17 16:00] VITALS: BP 109/61
[2019-10-17 20:00] VITALS: BP 92/52
[2019-10-18] VITALS: BP 96/54
[2019-10-18 04:00] VITALS: BP 97/55
[2019-10-18 08:00] VITALS: BP 99/57
[2019-10-18] MEDS: MIDODRINE HCL 5MG TABLET PO SCH ×3 (09:13→16:00)
[2019-10-18 12:00] VITALS: BP 95/57
[2019-10-18 16:00] VITALS: BP 97/62
[2019-10-18 20:00] VITALS: BP 93/49
[2019-10-18] MEDS: RISPERIDONE 1MG TABLET PO SCH (20:59)
[2019-10-19] VITALS: BP 95/54
[2019-10-19 08:00] VITALS: BP 92/63
[2019-10-19] MEDS: RISPERIDONE 1MG TABLET PO SCH (09:22)
[2019-10-19] MEDS: MIDODRINE HCL 5MG TABLET PO SCH (09:22)
[2019-10-19 12:00] VITALS: BP 84/46
[2019-10-19 16:00] VITALS: BP 92/52
[2019-10-19 19:13] VITALS: BP 92/82
== END 2019-10-19 20:17 | DRG 139 ==
LOC: ER 16:59 → MICUSO 22:16 → EDBEDREQSVC 22:21 → EDBEDREQTM 22:21 → EDBEDREQ 22:21 → 5WST 08-28 09:20 → 6EST 09-23 17:28
PROVIDERS: ADMIT Hospitalist; ATTEND Hospitalist
DX: J18.9 Pneumonia, unspecified organism (principal); E43 Unspecified severe protein-calorie malnutrition; D69.59 Other secondary thrombocytopenia; E87.1 Hypo-osmolality and hyponatremia; N39.0 Urinary tract infection, site not specified; F10.10 Alcohol abuse, uncomplicated; Z68.1 Body mass index [BMI] 19.9 or less, adult; E87.0 Hyperosmolality and hypernatremia; E87.6 Hypokalemia; E83.42 Hypomagnesemia; I95.9 Hypotension, unspecified; R26.81 Unsteadiness on feet; Z20.828 Contact with and (suspected) exposure to other viral communicable diseases; R62.7 Adult failure to thrive; G92 Toxic encephalopathy; Z78.1 Physical restraint status
CPT/HCPCS: 36415; 36600; 71045; 80048; 80053; 80305; 80320; 81003; 82140; 82375; 82550; 82805; 83605; 83735; 84100; 84145; 84484; 85025; 92610; 93005; 93970; 97110; 97112; 97116; 97162; 97166; 97530; 97535; 99291; J0456; J0696; J1630; J2060; J2405; J2543; J3370; J3475; J3480; J7030; J7060; G0480; U0003-CS

== ENCOUNTER 2020-03-28 13:46 | Emergency (ER) | payer SELFPAY ==
[~2020-03-28] VITALS: Ht 160 cm; Wt 64.0 kg
[2020-03-28] MEDS ORDERED: SODIUM CHLORIDE 0.9% 1,000 ML IV ONE (14:15)
[2020-03-28 15:10] LABS: CHLORIDE 94 mEq/L (98-107)
[2020-03-28 15:11] LABS: BASOPHILS % 0.1 % (0.0-2.0); EOSINOPHILS % 0.9 % (0.0-5.0); HEMATOCRIT. 39.4 % (42.0-52.0); HEMOGLOBIN. 13.1 g/dL (14.0-18.0); LYMPHOCYTES % 22.5 % (20.0-50.0); MEAN CORPUSCULAR HEMOGLOBIN 28.7 pg (28.0-32.0); MEAN CORPUSCULAR VOLUME 86.7 fL (80.0-94.0); MEAN PLATELET VOLUME 8.2 fl (7.4-10.4); MONOCYTES % 14.7 % (2.0-8.0); NEUTROPHILS % 61.8 % (40.0-76.0); PLATELET 227 x1000/uL (130-400); RED BLOOD CELL COUNT 4.55 mill/uL (4.7-6.1); RED CELL DISTRIBUTION WIDTH 14.3 % (11.6-14.6)
[2020-03-28 15:27] LABS: ETHANOL BLOOD 281 mg/dL
[2020-03-28 16:05] LABS: *BARBITURATES SCREEN URINE NEGATIVE (NEGATIVE)
[2020-03-28 16:06] LABS: *AMPHETAMINES SCREEN URINE NEGATIVE (NEGATIVE); *BENZODIAZEPINES SCREEN URINE NEGATIVE (NEGATIVE); *COCAINE SCREEN URINE NEGATIVE (NEGATIVE); METHADONE URINE SCREEN NEGATIVE (NEGATIVE); OPIATES URINE SCREEN NEGATIVE (NEGATIVE); PHENCYCLIDINE URINE SCREEN NEGATIVE (NEGATIVE)
[2020-03-28 16:07] LABS: CANNABINOID URINE SCREEN NEGATIVE (NEGATIVE)
[2020-03-29 04:45] VITALS: BP 95/58
== END 2020-03-29 06:44 | disposition home or self-care (01) ==
LOC: ER 13:46
DX: F10.229 Alcohol dependence with intoxication, unspecified (principal); Y90.8 Blood alcohol level of 240 mg/100 ml or more; R03.0 Elevated blood-pressure reading, without diagnosis of hypertension; Z59.0 Homelessness
CPT/HCPCS: 36415; 80053; 80305; 80320; 85025; 93005; 96360; 99285; J7030; G0480